=== PATIENT | male | born 1965 | race Caucasian/White ===

== ENCOUNTER 2016-12-15 16:27 | Emergency (ER) | payer SELFPAY ==
[2016-12-15] MEDS ORDERED: Ondansetron 4 MG Tab.DIS PO ONE (17:20)
[2016-12-15] MEDS ORDERED: HYDROmorphone 2 MG/ML SDV IM ONE ×3 (17:20→19:20)
[2016-12-15 19:36] VITALS: BP 123/80
--- NOTE | 2016-12-18 08:54 | CT ---
INDICATION: Probable aseptic necrosis, possible occult fracture, exquisite left hip pain. CT PELVIS WITHOUT CONTRAST: Spiral 1.25-mm axial sections were obtained through the pelvis axially, with sagittal and coronal reconstructions. There is, along the cranial aspect of the acetabulum posteriorly, what appears to be a chip fracture fragment off the acetabular lip. This should be correlated clinically. No gross soft tissue swelling is noted in that area. It could represent a previous site of trauma with nonunion. Otherwise, no evidence of aseptic necrosis, gross fracture, or dislocation of the hips was identified. Minimal degenerative changes are suggested at the hip joints. Mild degenerative changes are noted at the sacroiliac joints. Mild degenerative change is noted at the posterior elements - apophyseal joints of L5-S1, and to a minimal extent at posterior elements of L4-5 also. Overall bone density of the pelvis appeared normal. Multiple phleboliths are noted in the pelvis. The prostate was not enlarged. The urinary bladder is somewhat distended. The appendix appeared normal. IMPRESSION: 1. Cannot exclude a fracture of the lip of the acetabulum on the left posteriorly and cranially, undisplaced. Position and alignment is good. No other gross abnormalities were suggested, with no joint effusion or gross evidence for aseptic necrosis identified. If additional occult bony abnormality is suspected clinically, nuclear bone imaging or possibly MRI may be helpful. 2. Degenerative changes sacroiliac joints. 3. Degenerative changes apophyseal joints L4-5 and to a slightly greater extent L5-S1. 4. Minimal degenerative changes at the hip joints, with the joint spaces appearing to be fairly well preserved. Report was called to Dr. Hammer at 1829 hours, 12/15/2016. Total Exam DLP = 1331.40 mGy-cm. MTDD
--- NOTE | 2016-12-18 12:05 | CR ---
INDICATION: Left hip pain. No history of trauma. LEFT HIP: Frontal and lateral views of the left hip were obtained. There is an irregular lucency through the acetabulum cranial laterally. This could represent an undisplaced fracture site. CT would be confirmatory. Otherwise, except for some very minimal degenerative change at the hip joints with the joint space preserved at the left hip, no significant findings were noted. Sacroiliac joint appears to be fairly intact. IMPRESSION: Possible fracture rim of the acetabulum. MTDD
--- NOTE | 2016-12-19 11:20 | ER ---
DATE SEEN: 12/15/2016 TIME SEEN: The patient was seen at 1605 hours. CHIEF COMPLAINT: Left hip pain. HISTORY OF PRESENT ILLNESS: This 51-year-old man noted he had onset of hip discomfort 2 months ago. A month ago, fell down and felt increased pain after that. He then was hitchhiking from [place] to [place] and walked 2 miles today. He has severe pain. He stood for 6 to 7 hours before he got picked up, then came here. He has severe pain, 10/10 pain. No history of recent fever or drug use (he has "been running from some people" and they were "bad people"). I am not sure what this means, but from what I look at, he seems to be a pretty straight character; however, it is difficult to even make that deduction. He stated he "fell 2 weeks ago". At that time, he fell because he had too much alcohol. Denies diabetes, heart disease, high blood pressure, asthma, or serious illnesses. MEDICATIONS: He is not on any medications currently. REVIEW OF SYSTEMS: Otherwise, negative except for the hip discomfort. PHYSICAL EXAMINATION: VITAL SIGNS: Blood pressure 140/78, heart rate 108, respirations 18, oxygen saturation 97%, and temperature 36.3 degrees centigrade. BMI is 45.2 kg/m2. When he doesn't move, his pain is 4/10; when he moves his left leg, any movement causes severe pain 10/10. GENERAL: He is well shaven, clean kempt, very appropriate, courteous, and has good eye contact. A massively obese man - morbid obesity. HEENT: Negative. PERRLA intact. Pharynx without abnormality. NECK: Without thyromegaly or masses. He has a full neck. LUNGS: Clear to auscultation without rales, rhonchi, or wheezes. HEART: S1, S2. No murmur. No irregular rate and rhythm. ABDOMEN: Soft. No hepatosplenomegaly. He has moderate increased abdominal girth. EXTREMITIES: Lower extremities: No AP pelvis discomfort on the right side, but left side causes mild discomfort. Any movement of external rotation or internal rotation of the left lower extremity causes extreme pain. It is slightly externally rotated as visualized. No linear angiitis. No palpable vascular structure pains in his left lower extremity. No varicosities. Deep tendon reflexes absent in lower extremities and upper extremities. NEUROLOGIC: Cranial nerves 2 through 12 intact. Oriented x3. Appropriate speech. Appropriate thought content. Fund of knowledge is normal. X-RAY: A CAT scan of the left hip reveals a triangular 16 x 14 x 12, almost equilateral triangle of superoposterior acetabular fracture. It is nondisplaced. PLAN: The patient will be transferred to [place] for further orthopedic intervention. During the process, because of his extensive pain, he was given 1 mg Dilaudid; it didn't hold him, so was given another dose of 2 mg of Dilaudid, and a subsequent dose of 2 mg of Dilaudid followed by 3 mg IM. The patient received Zofran also. DIAGNOSES: 1. Left posterior to superior acetabular fracture of left hip. 2. Marked obesity. /[id number] [address]URA
== END 2016-12-15 20:10 ==
LOC: FB.ED 16:27
DX: S32.402A Unspecified fracture of left acetabulum, initial encounter for closed fracture (principal); E66.9 Obesity, unspecified; W19.XXXA Unspecified fall, initial encounter
CPT/HCPCS: 72192; 73502; 80305; 81001; 96372; 99284; A9270; J1170